=== PATIENT | female | born 2005 | race Caucasian/White ===

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

== ENCOUNTER 2023-01-29 18:41 | Emergency (ER) | payer OTHER, SELFPAY ==
[2023-01-29 18:50] VITALS: BP 129/74; PULSE 62; RESP 20; TEMP 36.9; O2SAT 98; BMI 27.7
[2023-01-29 19:01] LABS: UTC Strep Screen (Rapid) Negative (Negative)
--- NOTE | 2023-01-29 19:40 | EXP.UTC ---
Discharge Plan Disposition Patient Disposition: Home, Self-Care Condition: Good Prescriptions Prescriptions: New azithromycin [Zithromax Z-Benjamin] 250 mg tablet See Rx Instructions .ROUTE .COMPLEX 5 Days Qty: 6 0RF Rx Instructions: For 250 mg dose pack: take 500 mg today (day 1), then 250 mg for 4 days (days 2-5) No Action escitalopram oxalate 10 mg tablet 10 mg PO DAILY Aimovig Autoinjector 140 mg/mL auto-injector 140 mg SQ QMONTH Referrals Follow up/Referrals: Dilcia Drake APRN [Primary Care Provider] - See instructions Activity Restrictions/Add. Instructions Additional Instructions/Restrictions: *Monitor Temp, Over the counter Motrin or Tylenol as directed/as needed Tylenol every 4 hours and Motrin every 6 hours (as long as your family doctor has told you that you can take it) for fever or pain. and straight to ER if unable to lower temp less than 101.0 after medication given *Warm salt water gargles may help to soothe the throat *Throat Lozenges? *Warm fluids like tea with honey may help to soothe the throat? *Sleep elevated *Humidifier/Vaporizer Your throat swab was sent for culture. Those results are typically sent to your primary care. Be sure to follow up in 2-3 days with your family doctor/primary care physician if no improvement so they can review those result and treat if necessary. If you don?t have a primary care doctor, I recommend you get one but in the mean time, you will have to return to a walk in clinic Follow up IMMEDIATELY for new or worsening symptoms or no Noticeable improvement over the next 48-72 hours. 911 for difficulty breathing or swallowing Clinical Impressions Clinical Impression: URI (upper respiratory infection) Qualifiers: URI type: unspecified URI Qualified Code(s): J06.9 - Acute upper respiratory infection, unspecified Instructions Patient Instructions: Sore Throat, DI for Sinusitis Discharge ED Provider: Cherelle Corey [place] HPI General Stated complaint: sore throat Mode of Arrival: Ambulatory Source of Information: Patient Limitations: No Limitations Time Seen by Provider: 01/29/23 19:00 Description of Symptoms (Recalled from Triage Doc. by RN): PATIENT C/O SORE THROAT TODAY AND HEADACHE SINCE YESTERDAY HEENT Symptoms (Recalled from RN notes): Yes Resp Symptoms (Recalled from RN notes): No Skin Symptoms (Recalled from RN notes): No MS Symptoms (Recalled from RN notes): No Functional Status (Recalled from RN notes): WNL History of Present Illness Provider Complaint: Patient states that she had a headache yesterday, feeling achy and fatigued and today she had sore throat and tired States that she was worried she may have strep throat States that also she was feeling tired and achy like she felt when she had [place] before Related Data Home Medications Medication Instructions Recorded Confirmed erenumab-aooe 140 mg/mL 140 mg SQ QMONTH MIGRAINE 01/29/23 01/29/23 subcutaneous auto-injector (Aimovig Autoinjector) escitalopram oxalate 10 mg tablet 10 mg PO DAILY Anxiety 01/29/23 01/29/23 Previous Rx's Medication Instructions Recorded azithromycin 250 mg tablet See Rx Instructions PO .COMPLEX 5 01/29/23 (Zithromax Z-Benjamin) days #6 tabs Allergies Allergy/AdvReac Type Severity Reaction Status Date / Time No Known Allergies Allergy Verified 01/15/23 12:02 Worker's Comp Is this a Worker's Comp case?: No PFSH [facility] Disclaimer: The information contained in this section may have been updated after the patient was seen, as this information can be updated by other users. Medical History (Updated 01/29/23 @ 20:09 by Cherelle Corey APRN) Abdominal pain, lower Abnormal uterine bleeding Acute anemia Acute bronchitis Acute viral syndrome Anxiety Bronchitis Bronchitis Cervical muscle strain Collar bone pain Constipation Constipation COVID-19 Dental abscess Depression Dizziness Encounter fo
[2023-01-29 20:01] LABS: Monoscreen (Rapid) Negative (Negative)
[2023-01-29 20:03] VITALS: BP 129/74; PULSE 62; RESP 20; TEMP 36.9; O2SAT 98
== END 2023-01-29 20:16 | disposition home or self-care (01) ==
PROVIDERS: Emergency Provider Nurse Practitioner; PCP Nurse Practitioner Family
DX: J06.9 Acute upper respiratory infection, unspecified (principal); R53.81 Other malaise; F41.9 Anxiety disorder, unspecified; F32.A Depression, unspecified
CPT/HCPCS: 86318; 87880; 99212; 99214; G0463

== ENCOUNTER → 2023-04-01 10:53 | Outpatient (CLI) | payer OTHER, SELFPAY ==
--- NOTE | 2023-04-01 10:53 | FL_ITS ---
FINAL REPORT CLINICAL HISTORY: diff swallowing FINDINGS: MODIFIED BARIUM SWALLOW HISTORY: Dysphagia. FINDINGS: Fluoroscopy was provided for the speech pathologist to evaluate the swallowing mechanism. The patient was given several different consistencies of barium while the swallow was visualized fluoroscopically. The report of the speech pathologist should be consulted prior to making dietary decisions. IMPRESSION: Modified barium swallow under fluoroscopic guidance. Please see speech pathologist's report for further details and dietary recommendations. Fluoroscopy time was 1 minutes, 43 seconds Radiation exposure in Reference air Kerma: 7 mGy A total of 16 cine runs were saved. Reviewed, Interpreted and Dictated by Juana Espitia MD Transcribed by Grace Shaffer PA-C Authenticated and [facility]
--- NOTE | 2023-04-01 11:31 | HMH.SLMBS2 ---
Speech & Language Evaluation Speech/Language Mod Barium Swallow Start: 04/01/23 11:24 Freq: once Status: Complete Protocol: Document 04/01/23 11:24 GEORGE (Rec: 04/01/23 11:30 GEORGE [id number]) General Information General Current Food Consistancy Regular,Thin Liquids Dentition Good Dentition Oxygen Status Room Air Patient Orientation Person,Place,Time,Situation Ability to Follow Directions Excellent Communication Ability No Impairment MBS Recommendations Diet Dietary Recommendations Regular,Thin Liquids Treatment/Strategies Strategy/Precaution Recommend Sitting Upright (90 deg), Double Swallow,No Straw,Small Bites and Sips,Alternate Liquids/Solids Mod Barium Swallow Impressions Summary and Impressions Oral Phase Impression Minimal Impairment Oral Phase Summary Minimal impairment of the oral transit and oral preparatory phases of the swallow. Overall , mastication and manipulation of bolus are WFL, however, pt was observed to have difficulty with larger bolus size and would withhold and initiate multiple swallows to clear, as well as taking multiple swallow attempts to clear barium tablet from oral cavity 2' minimal tongue movement and ROM. Pharyngeal Phase Impression Mild Impairment Pharyngeal Phase Summary Mild impairment of the pharyngeal phase of the swallow. Upon subsequent sips, larger sips, and straw sips of thin liquid bolus residual was observed in the vallecular space. Pt required 2nd swallow to clear. BOT residual was also observed across regular and mechanical soft solids. No overt s/sxs of aspiration was observed, however 2' difficulty with barium tablet pt was observed to gag and took 4 attempts to clear from oral cavity. Speech/Language MBS Assessment/Goals/Plan Assessment Date of Evaluation: 04/01/23 Evaluation Type Initial Certification Assessment/Problems Choking/dys
== END ==
PROVIDERS: PCP Nurse Practitioner Family; Visit Provider Nurse Practitioner Family
DX: R13.10 Dysphagia, unspecified (principal); R09.89 Other specified symptoms and signs involving the circulatory and respiratory systems
CPT/HCPCS: 70371; 92611

== ENCOUNTER 2023-10-06 17:19 | Emergency (ER) | payer OTHER, SELFPAY ==
[2023-10-06 18:00] VITALS: BP 116/76; PULSE 90; RESP 18; TEMP 37.1; O2SAT 97; BMI 26.6
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
[2023-10-06 18:41] VITALS: BP 116/76; PULSE 90; RESP 18; TEMP 37.1; O2SAT 97
== END 2023-10-06 18:41 | disposition home or self-care (01) ==
PROVIDERS: Emergency Provider Nurse Practitioner Family; PCP Nurse Practitioner Family
DX: H66.92 Otitis media, unspecified, left ear (principal); H60.92 Unspecified otitis externa, left ear
CPT/HCPCS: 99212; 99214; G0463

== ENCOUNTER 2023-11-09 15:53 | Emergency (ER) | payer OTHER, SELFPAY ==
[2023-11-09 15:55] VITALS: BP 112/77; PULSE 77; RESP 17; TEMP 36.8; O2SAT 97; BMI 29.2
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
[2023-11-09 16:14] VITALS: BP 112/77; PULSE 77; RESP 17; TEMP 36.8; O2SAT 97
== END 2023-11-09 16:15 | disposition home or self-care (01) ==
PROVIDERS: Emergency Provider Nurse Practitioner Family; PCP Nurse Practitioner Family
DX: H69.93 Unspecified Eustachian tube disorder, bilateral (principal); R42 Dizziness and giddiness
CPT/HCPCS: 99212; 99214; G0463

== ENCOUNTER 2023-11-27 10:22 | Emergency (ER) | payer OTHER, SELFPAY ==
[2023-11-27 10:33] VITALS: BP 118/79; PULSE 94; RESP 16; TEMP 36.7; O2SAT 98; BMI 29.5
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
[2023-11-27 10:58] VITALS: BP 118/79; PULSE 94; RESP 16; TEMP 36.7; O2SAT 98
== END 2023-11-27 10:58 | disposition home or self-care (01) ==
PROVIDERS: Emergency Provider Nurse Practitioner; PCP Nurse Practitioner Family
DX: H66.92 Otitis media, unspecified, left ear (principal); H92.02 Otalgia, left ear
CPT/HCPCS: 99212; 99214; G0463

== ENCOUNTER 2023-12-07 14:35 | Outpatient (CLI) | payer OTHER, SELFPAY ==
[2023-12-07 14:26] LABS: Microscopic, Urine URINE MICROSCOPIC (MICROSCOPIC)
[2023-12-07 15:09] LABS: Appearance,Urine CLEAR (Clear); Blood, Urine 1+ (Negative); Color,Urine ORANGE (Yellow); Glucose,Urine (UA) Negative (Negative); Ketones,Urine Negative (Negative); Leukocyte Esterase,Urine Negative (Negative); Nitrate,Urine POSITIVE (Negative); PH,Urine 5.5 (5.0-8.5); Protein,Urine TRACE (Negative); Specific Gravity, Urine >= 1.030 (1.005-1.030)
[2023-12-07 15:35] LABS: Basophils # 0.1 K/mm3 (0-0.2); Basophils % 0.7 % (0.1-2.0); Eosinophils # 0.1 K/mm3 (0.0-0.4); Eosinophils % 0.9 % (0.1-12.0); Hematocrit 36.1 % (37.0-47.0); Hemoglobin 13.8 g/dL (12.2-16.2); Lymphocytes # 3.6 K/mm3 (0.7-4.5); Lymphocytes % 35.7 % (10-50); Mean Corpuscular HGB Conc 38.2 g/dL (31.8-35.4); Mean Corpuscular Hemoglobin 34.6 pg (27.0-31.2); Mean Corpuscular Volume 90.6 fl (81-99); Mean Platelet Volume 7.8 fl (7.4-10.4); Monocytes # 0.5 K/mm3 (0.1-1.0); Monocytes % 4.6 % (1.7-9.3); Neutrophils # 5.8 K/mm3 (1.8-7.8); Neutrophils % 58.1 % (37.0-80.0); Platelet Count 298 K/mm3 (142-424); Red Blood Count 3.99 M/mm3 (4.20-5.40); Red Cell Distribution Width 13.7 % (11.5-17.5); White Blood Count 9.9 K/mm3 (4.5-13.0)
[2023-12-07 15:39] LABS: Bilirubin,Urine Negative (Negative)
[2023-12-07 15:41] LABS: Bacteria,Urine Trace /lpf; RBC,Urine Occasional #/hpf (0-3); WBC,Urine Occasional #/hpf (0-3)
[2023-12-07 15:51] LABS: Hemoglobin A1C 4.9 % (4.0-6.0)
[2023-12-07 15:59] LABS: Alanine Aminotransferase 21 U/L (12-78); Albumin Level 4.5 g/dl (3.5-5.0); Albumin/Globulin Ratio 1.6 (1.1-1.8); Alkaline Phosphatase 73 U/L (38-126); Anion Gap 13.5 mEq/L (5-15); Aspartate Amino Transferase 25 U/L (14-36); Bilirubin,Total 0.5 mg/dl (0.2-1.3); Blood Urea Nitrogen 13 mg/dl (7-17); Calcium 9.7 mg/dl (8.4-10.2); Carbon Dioxide 23 mmol/L (22.0-30.0); Chloride 108 mmol/L (98-107); Chol/HDL Ratio 4.6 (1-3.5); Cholesterol 224 mg/dl (140-200); Estimated Glomerular Filt Rate 127 ml/min (>60); GFR (African American) 154 ML/MIN (>60); Globulin 2.8 g/dL (1.3-3.2); Glucose 86 mg/dl (74-100); HDL Cholesterol 49 mg/dl (40-60); Phosphorous 3.6 mg/dl (2.5-4.5); Potassium 4.5 mmoL/L (3.5-5.1); Sodium 140 mmol/L (136-145); Total Protein,Serum 7.3 g/dl (6.3-8.2); Triglycerides 109 mg/dl (30-150); VLDL Cholesterol 22 mg/dL (0-40)
[2023-12-07 16:09] LABS: Direct LDL Cholesterol 142.46 mg/dL (100-129)
[2023-12-07 16:15] LABS: Free T4 (Free Thyroxine) 1.04 ng/dl (0.78-2.19)
[2023-12-07 16:16] LABS: 25-OH Vitamin D, Total 36.8 ng/mL (30-100)
[2023-12-07 16:30] LABS: Thyroid Stimulating Hormone 2.51 uIU/mL (0.465-4.68)
[2023-12-07 16:50] LABS: Vitamin B12 328 pg/mL (239-931)
[2023-12-07 17:15] LABS: Iron 72 ug/dL (37-170)
[2023-12-07 17:25] LABS: Total Iron Binding Capacity 318 ug/dL (265-497)
[2023-12-07 17:53] LABS: Ferritin 33.3 ng/ml (6.24-137)
== END 2023-12-07 23:59 | disposition home or self-care (01) ==
LOC: LAB.DROPOF 14:35
PROVIDERS: PCP Nurse Practitioner Family; Visit Provider Nurse Practitioner Family
DX: R53.83 Other fatigue (principal); Z13.220 Encounter for screening for lipoid disorders; Z13.1 Encounter for screening for diabetes mellitus
CPT/HCPCS: 80050; 80053; 80061; 81001; 82306; 82607; 82728; 83036; 83540; 83550; 83735; 84100; 84439; 84443; 85025; 87086; 87088; 87186

== ENCOUNTER 2023-12-12 10:20 | Emergency (ER) | payer OTHER, SELFPAY ==
[2023-12-12 10:50] VITALS: BP 117/78; PULSE 78; RESP 18; TEMP 36.8; O2SAT 98; BMI 29.0
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
[2023-12-12 11:32] LABS: Apearance,Urine Clear (Clear); Bilirubin,Urine 1+ (Negative); Blood, Urine Trace (Negative); Color,Urine Amber (Yellow); Glucose,Urine (UA) 100 (Negative); Ketones,Urine Negative (Negative); Protein,Urine Trace (Negative); Specific Gravity, Urine >= 1.030 (1.005-1.030); UTC Leukocyte Esterase,Urine Negative (Negative); UTC Nitrate,Urine Positive (Negative); Urobilinogen,Urine 1 EU/dl (0.2)
[2023-12-12 11:39] VITALS: BP 117/78; PULSE 78; RESP 18; TEMP 36.8; O2SAT 98
== END 2023-12-12 11:42 | disposition home or self-care (01) ==
PROVIDERS: Emergency Provider Nurse Practitioner; PCP Nurse Practitioner Family
DX: N39.0 Urinary tract infection, site not specified (principal); R10.2 Pelvic and perineal pain; R30.0 Dysuria
CPT/HCPCS: 81003; 87086; 99212; 99214; G0463

== ENCOUNTER 2023-12-22 11:08 | Outpatient (POV) | payer OTHER, SELFPAY | END 2023-12-22 23:59 | disposition home or self-care (01) | LOC: SC 11:09 | PROVIDERS: PCP Nurse Practitioner Family; Visit Provider Dermatology | DX: Z00.00 Encounter for general adult medical examination without abnormal findings (principal) ==

== ENCOUNTER 2023-12-23 13:00 | Outpatient (RCR) | payer OTHER, SELFPAY | END 2023-12-23 13:05 | disposition home or self-care (01) | LOC: PT 13:00 | PROVIDERS: Visit Provider Nurse Practitioner | DX: R68.84 Jaw pain (principal); S03.00XA Dislocation of jaw, unspecified side, initial encounter | CPT/HCPCS: 20561; 97014; 97110; 97163; G0283 ==

== ENCOUNTER 2024-02-12 14:56 | Outpatient (CLI) | payer OTHER, SELFPAY ==
--- NOTE | 2024-02-12 14:56 | US_ITS ---
PROCEDURE: US TRANSVAGINAL CLINICAL INDICATION: pelvic pain-possible ovarian cyst COMPARISON: US US PELVIC from 09/15/2022 US US TRANSVAGINAL from 10/22/2022 FINDINGS: Transvaginal sonographic images of the pelvis were obtained. UTERUS: 8.3cm x 4.6 cmx 4.3cm with a combined endometrial thickness of 14.8 mm. Initially the endometrium appeared thickened but at the end of the exam the endometrium appear normal and 5.9 mm. LEFT OVARY: 2.2cmx1.7 cmx1.1cm with a volume of 2.3ml. RIGHT OVARY: 3.5 cmx 3.8 cmx2.6 cm with a volume of 18.1ml. There is a simple follicle measuring 3.3 cm x 2.4 cm x 3.6 cm Both ovaries are seen and appear normal. Doppler flow to both ovaries are seen. There is no fluid in the cul-de-sac. IMPRESSION: 1. Anteverted uterus normal in shape and size. The endometrium initially measured 14.8 mm and at the end of the exam the endometrium measured 5.9 mm. 2. The left ovary is seen and appears normal. 3. Within the right ovary is a 3.6 cm simple follicle. 4. No fluid in the cul-de-sac. 5. Suggest repeat scan in 6-8 weeks. Dictated by: Farurkh Camara MD 02/13/2024 08:05 Farrukh Camara MD in [place] 02/13/2024 08:05
== END 2024-02-12 23:59 | disposition home or self-care (01) ==
LOC: RAD 14:56
PROVIDERS: PCP Nurse Practitioner Family; Visit Provider Obstetrics & Gynecology
DX: R10.2 Pelvic and perineal pain (principal); N80.9 Endometriosis, unspecified; N83.202 Unspecified ovarian cyst, left side
CPT/HCPCS: 76830

== ENCOUNTER 2024-05-05 11:33 | Emergency (ER) | payer OTHER, SELFPAY ==
[2024-05-05 12:50] VITALS: BP 131/86; PULSE 80; RESP 19; TEMP 37.1; O2SAT 98; BMI 31.9
--- NOTE | 2024-05-05 13:14 | EXP.UTC ---
Discharge Plan Disposition Patient Disposition: Home, Self-Care Condition: Good Prescriptions Prescriptions: New oseltamivir [Tamiflu] 75 mg capsule 75 mg PO Q12H 5 Days Qty: 10 0RF No Action norgestimate-ethinyl estradiol [Sprintec (28)] 0.25-35 mg-mcg tablet 1 tab PO DAILY Qty: 84 4RF escitalopram oxalate 10 mg tablet 10 mg PO DAILY Rx Instructions: TAKE 1 TABLET BY MOUTH ONCE DAILY FOR ANXIETY Referrals Follow up/Referrals: Dilcia Drake APRN [Primary Care Provider] - See instructions Activity Restrictions/Add. Instructions Additional Instructions/Restrictions: Start Tamiflu today if you are going to take it. Discussed risk and possible benefits. Lots of rest Increase Fluids water, Gatorade, powerade, pedialyte,if /toddler/child Alternate Tylenol and / or ibuprofen as discussed for fever, aches, chills Follow up IMMEDIATELY with your family doctor for new or worsening Symptoms OR no noticeable improvement over the next 48-72 hours, 911 for difficulty or breathing You or your child area contagious until no fever, aches, chills for 24 hours with medication for symptoms Help Prevent the spread of influenza: ?Wash your hands often. Use soap and water. Wash your hands after you use the bathroom, change a child's diapers, or sneeze. Wash your hands before you prepare or eat food. Use gel hand cleanser that has 60% alcohol, when soap and water are not available. Do not touch your eyes, nose, or mouth unless you have washed your hands first. Cover your mouth when you sneeze or cough. Cough into a tissue or the bend of your arm. If you use a tissue, throw it away immediately and wash your hands. Clean shared items with a germ-killing marble cleaner. Clean table surfaces, doorknobs, and light switches. Do not share towels, silverware, and dishes with people who are sick. Wash bed sheets, towels, silverware, and dishes with soap and water. Wear a mask over your mouth and nose if you are sick. The face mask may help protect others from becoming infected with the flu. Wear the mask when in common areas of your home or if you seek care with a healthcare provider. Stay away from others if you are sick. Stay at home until 24 hours after your fever and symptoms are gone. Clinical Impressions Clinical Impression: Influenza Instructions Patient Instructions: DI for Influenza -- Adult, Influenza Print Language Print Language: Citizen Of [place] Discharge ED Provider: Cherelle Corey [facility] [place] HPI General Stated complaint: congestion body aches fever Mode of Arrival: Ambulatory Source of Information: Patient Limitations: No Limitations Time Seen by Provider: 05/05/24 13:00 Description of Symptoms (Recalled from Triage Doc. by RN): PATIENT C/O EAR PAIN, CHILLS, FEVER, CONGESTION AND BODY ACHES X 3 DAYS HEENT Symptoms (Recalled from RN notes): Yes Resp Symptoms (Recalled from RN notes): No Skin Symptoms (Recalled from RN notes): No MS Symptoms (Recalled from RN notes): No Functional Status (Recalled from RN notes): WNL History of Present Illness Provider Complaint: Patient states that for the last few days she has been having body aches, chills, headache, ear pain and chills States that father tested positive this morning for the flu Related Data Home Medications ?Medication ?Instructions ?Recorded ?Confirmed escitalopram oxalate 10 mg tablet 10 mg PO DAILY 11/09/23 05/05/24 Previous Rx's ?Medication ?Instructions ?Recorded norgestimate 0.25 mg-ethinyl 1 tab PO DAILY #84 tabs 01/20/24 estradiol 35 mcg tablet (Sprintec (28)) oseltamivir 75 mg capsule (Tamiflu) 75 mg PO Q12H 5 days #10 caps 05/05/24 Allergies Allergy/AdvReac Type Severity Reaction Status Date / Time No Known Allergies Allergy Verified 01/20/24 14:31 Worker's Comp Is this a Worker's Comp case?: No [facility] Disclaimer: The information contained in this section may have been updated after the patient was seen, as this information can be updated by other users. Medical History (Updated 05/05/24 @ 13:20 by Cherelle Corey APRN) Endometriosis Pelvic pain Abnormal uterine bleeding Difficulty swallowing Choking episode Acute dysfunction of both eustachian tubes TMJ (dislocation of temporomandibular joint) Acute anemia Lumbosacral strain Cervical muscle strain Bronchitis Pharyngitis Depression Anxiety Migraine Epistaxis Left otitis media Gastroenteritis Surgical History H/O dilation and curettage History of tonsillectomy Family History Sister Postural orthostatic tachycardia syndrome [POTS] Other Cervical cancer Colon cancer Family history of cancer Lung cancer Social History Smoking Status: Never smoker alcohol intake: never substance use type: denies use current occupational status: employed Travel in the last 8 weeks: None household members: family housing: house lives independently: No education level: high school service: No penitentiary: No caffeine: Yes special maryam needs: No do you feel safe at home: Yes victim of physical abuse: No victim of emotional abuse: No victim of sexual abuse: No would you like helpful sources: No Have you lived/traveled outside [place] in past 30 days?: No Contact w/someone who lives/traveled outside US past 30 days?: No Exposure to someone with infectious disease in past 14 days?: No Do you have a fever (greater than 100.4 F or 38 C)?: No Have you tested positive for COVID-19: No Exposed to someone with COVID-19 in past 14 days?: No Do you have a sore throat?: Yes Do you have a cough?: Yes Do you have any weakness?: Yes Do you have any diarrhea?: No Are you experiencing any unusual bleeding?: No Do you have any muscle aches/pain?: No Do you have any abdominal pain?: No Are you experiencing loss of taste or smell?: No ROS Obtained: Yes All systems reviewed & no additional complaints except as documented and Yes Systems reviewed as appropriate & no additional complaints except as documented Constitutional Constitutional: Reports system reviewed and no additional complaints, except as documented, Reports as per HPI, Reports body ache, Reports chills, Reports fever(s) and Reports headache(s) ENT Ears, Nose, Mouth, and Throat: Reports system reviewed and no additional complaints, except as documented, Reports as per HPI, Reports otalgia and Reports headache(s) Cardiovascular Cardiovascular: Reports system reviewed and no additional complaints, except as documented and Reports as per HPI Respiratory Respiratory: Reports system reviewed and no additional complaints, except as documented and Reports as per HPI Gastrointestinal Gastrointestingal: Reports system reviewed and no additional complaints, except as documented and as per HPI Neurologic Neurologic: Reports headache(s) Physical Exam General General appearance: alert and in no apparent distress ENT ENT exam: Present mucous membranes moist and TM's normal bilaterally Expanded ENT Exam Nose exam: Absent sinus tenderness Throat exam: Present normal inspection Respiratory Respiratory exam: Present normal lung sounds bilaterally; Absent respiratory distress or wheezes Cardiovascular Cardiovascular exam: Present regular rate, normal rhythm and normal heart sounds Abdominal Exam Abdominal exam: Present soft and normal bowel sounds; Absent distention or tenderness Neurological Exam Neurological exam: Present alert, oriented X3 and normal gait Medical Decision Making Medical Records Screening: Per USPSTF and CDC recommendations, given the prevalence of disease in our region, it is our hospital?s policy to screen for HIV and viral Hepatitis for all patients aged 18 and over and those with ongoing risk factors. Eliud Inquiry Pt receiving controlled substance: No Eliud was queried for this patient: No Vital Signs: 05/05/24 12:50 Temperature 98.8 F Temperature Source Oral Pulse Rate [Left Brachial] 80 Respiratory Rate 19 Blood Pressure [Left Arm] 131/86 Blood Pressure Mean [Left Arm] 101 Blood Pressure Source [Left Arm] Automatic Cuff Blood Pressure Position [Left Arm] Sitting 02 Sat by Pulse Oximetry 98 Oxygen Delivery Method Room Air Lab Data Lab results reviewed: Yes I reviewed the patient's lab results.
[2024-05-05 13:15] LABS: UTC Influenza A Antigen Positive (Negative); UTC Influenza B Antigen Negative (Negative)
[2024-05-05 13:20] VITALS: BP 131/86; PULSE 80; RESP 19; TEMP 37.1; O2SAT 98
== END 2024-05-05 13:23 | disposition home or self-care (01) ==
PROVIDERS: Emergency Provider Nurse Practitioner; PCP Nurse Practitioner Family
DX: J11.1 Influenza due to unidentified influenza virus with other respiratory manifestations (principal); R50.9 Fever, unspecified; R09.81 Nasal congestion; M79.10 Myalgia, unspecified site; H92.03 Otalgia, bilateral
CPT/HCPCS: 87804; 99212; G0381

== ENCOUNTER 2024-07-09 08:12 | Outpatient (CLI) | payer OTHER, SELFPAY ==
[2024-07-09 08:19] LABS: Anti-Centromere B Antibodies ND; Anti-DNA (DS) Ab Qn ND; Anti-Jo-1 ND; Antichromatin Antibodies ND; Antiscleroderma-70 Antibodies ND; RNP Antibodies ND; Sjogren's Anti-SS-A ND; Sjogren's Anti-SS-B ND
[2024-07-09 08:39] LABS: Basophils # 0.1 K/mm3 (0-0.2); Basophils % 0.5 % (0.1-2.0); Eosinophils # 0.1 K/mm3 (0.0-0.4); Eosinophils % 1.3 % (0.1-12.0); Hematocrit 39.3 % (37.0-47.0); Hemoglobin 13.2 g/dL (12.2-16.2); Lymphocytes # 4.8 K/mm3 (0.7-4.5); Lymphocytes % 48.4 % (10-50); Mean Corpuscular HGB Conc 33.6 g/dL (31.8-35.4); Mean Corpuscular Hemoglobin 28.5 pg (27.0-31.2); Mean Corpuscular Volume 84.9 fl (81-99); Mean Platelet Volume 9.2 fl (7.4-10.4); Monocytes # 0.6 K/mm3 (0.1-1.0); Monocytes % 6.4 % (1.7-9.3); Neutrophils # 4.3 K/mm3 (1.8-7.8); Neutrophils % 43.1 % (37.0-80.0); Platelet Count 313 K/mm3 (142-424); Red Blood Count 4.63 M/mm3 (4.20-5.40); Red Cell Distribution Width 12.6 % (11.5-17.5); White Blood Count 9.9 K/mm3 (4.5-13.0)
[2024-07-09 09:42] LABS: Alanine Aminotransferase 18 U/L (12-78); Albumin Level 4.7 g/dl (3.5-5.0); Albumin/Globulin Ratio 2.2 (1.1-1.8); Alkaline Phosphatase 75 U/L (38-126); Aspartate Amino Transferase 23 U/L (14-36); Bilirubin,Total 0.3 mg/dl (0.2-1.3); Blood Urea Nitrogen 11 mg/dl (7-17); Calcium 9.4 mg/dl (8.4-10.2); Carbon Dioxide 24 mmol/L (22.0-30.0); Chloride 109 mmol/L (98-107); Estimated Glomerular Filt Rate 107 ml/min (>60); GFR (African American) 129 ML/MIN (>60); Globulin 2.1 g/dL (1.3-3.2); Glucose 101 mg/dl (74-100); Magnesium 1.8 mg/dl (1.6-2.3); Sodium 141 mmol/L (136-145); Total Protein,Serum 6.8 g/dl (6.3-8.2)
[2024-07-09 09:57] LABS: T4 (Thyroxine) 13.1 ug/dl (5.53-11.0)
[2024-07-09 09:59] LABS: 25-OH Vitamin D, Total 19.9 ng/mL (30-100)
[2024-07-09 10:10] LABS: Thyroid Stimulating Hormone 3.24 uIU/mL (0.465-4.68)
[2024-07-09 10:39] LABS: Hemoglobin A1C 4.9 % (4.0-6.0)
[2024-07-09 13:12] LABS: Ferritin 27.3 ng/ml (6.24-137)
[2024-07-11 17:10] LABS: Estradiol <5.0 pg/mL (.); FSH 2.1 mIU/mL (.); LH 1.7 mIU/mL (.); Progesterone 0.3 ng/mL (.); Triiodothyronine (T3) Free 3.8 pg/mL (2.0-4.4)
[2024-07-12 14:12] LABS: Antinuclear Antibodies (ANA) Negative (Negative)
== END 2024-07-09 23:59 | disposition home or self-care (01) ==
PROVIDERS: PCP Nurse Practitioner Family; Visit Provider Nurse Practitioner Family
DX: G47.00 Insomnia, unspecified (principal); F41.9 Anxiety disorder, unspecified; N93.9 Abnormal uterine and vaginal bleeding, unspecified; R23.2 Flushing; Z13.1 Encounter for screening for diabetes mellitus
CPT/HCPCS: 36415; 80053; 82306; 82533; 82670; 82728; 83001; 83002; 83036; 83735; 84144; 84436; 84439; 84443; 84481; 85025; 86038; 86225; 86235

== ENCOUNTER 2024-07-15 14:41 | Outpatient (CLI) | payer OTHER, SELFPAY ==
--- NOTE | 2024-07-15 14:41 | US_ITS ---
PROCEDURE: US TRANSVAGINAL CLINICAL INDICATION: prolonged uterine bleeding COMPARISON: CT CT ABDOMEN PELVIS WO CON from 01/02/2022 US US PELVIC from 09/15/2022 US US TRANSVAGINAL from 10/22/2022 US US TRANSVAGINAL from 02/12/2024 FINDINGS: Transvaginal and transabdominal sonographic images of the pelvis were obtained. UTERUS: 8.1cm x 4.9 cmx 3.9 cm anteverted with a combined endometrial thickness of 3.7mm. There is a small amount of fluid within the cervical canal. LEFT OVARY: 1.1cmx2.0cmx 1.9 cm with a volume of 2.1ml. There are multiple small peripheral follicles. RIGHT OVARY: Not visualized. The left ovary is seen and appears multi-cystic. Doppler flow to left ovary is seen. There is no fluid in the cul-de-sac. IMPRESSION: 1. Anteverted uterus normal in shape and size. The endometrium is thin measuring 3.7 mm. There is a small amount of fluid within the cervical canal. 2. In the left cornua of the uterus there appears to be a well-circumscribed mass that measures 0.9 cm x 1.0 cm. See images 11-12. Suggest repeat scan to better delineate this and determine if this is simply artifact. 3. The left ovary is seen and appears normal. There are multiple small follicles. 4. The right ovary is not visualized transvaginally or transabdominally. 5. No fluid in the cul-de-sac. Dictated by: Farrukh Camara MD 07/15/2024 18:37 Farrukh Camara MD in [place] 07/15/2024 18:37
== END 2024-07-15 23:59 | disposition home or self-care (01) ==
LOC: RAD 14:41
PROVIDERS: PCP Nurse Practitioner Family; Visit Provider Nurse Practitioner Family
DX: N93.9 Abnormal uterine and vaginal bleeding, unspecified (principal)
CPT/HCPCS: 76830

== ENCOUNTER 2024-07-21 08:39 | Outpatient (CLI) | payer OTHER, SELFPAY ==
--- NOTE | 2024-07-21 08:40 | US_ITS ---
PROCEDURE: US TRANSVAGINAL CLINICAL INDICATION: left cornua of the uterus COMPARISON: CT CT ABDOMEN PELVIS WO CON from 01/02/2022 US US TRANSVAGINAL from 10/22/2022 US US TRANSVAGINAL from 02/12/2024 US US TRANSVAGINAL from 07/15/2024 FINDINGS: Transvaginal and transabdominal sonographic images of the pelvis were obtained. UTERUS: 7.0cm x 4.6 cmx 3.8 cm anteverted with a combined endometrial thickness of 7.2mm. The area of previously seen on the last ultrasound seems to be just benign vascularity. LEFT OVARY: 2.0cmx1.5 cmx1.6cm with a volume of 2.6ml. There are multiple small peripheral follicles. RIGHT OVARY: 1.8 cmx 1.3cmx1.4cm with a volume of 1.7ml. Right ovary is seen transabdominally and appears normal. Both ovaries are seen and appear normal. Doppler flow to both ovaries are seen. There is no fluid in the cul-de-sac. IMPRESSION: 1. Anteverted uterus normal in shape and size. The endometrium appears normal. The previously described area in the left cornua appears to be just benign vascularity. 2. Both ovaries are seen and appear normal. 3. No fluid in the cul-de-sac. Dictated by: Farrukh Camara MD 07/21/2024 18:35 Farrukh Camara MD in [place] 07/21/2024 18:35
--- NOTE | 2024-07-21 08:40 | CT_ITS ---
FINAL REPORT CLINICAL HISTORY: Kidney adrenal gland-High Cortisol COMPARISON: 01/02/2022 FINDINGS: The lung bases are clear. The liver is normal in size and attenuation. The gallbladder is normal. The spleen is unremarkable. The adrenals are normal. The pancreas is unremarkable. The kidneys enhance appropriately. Precontrast images demonstrate no nephrolithiasis or obstruction. The uterus is present and lies eccentric to the right. There is a moderate amount of stool throughout the colon. The appendix is unremarkable. IMPRESSION: No evidence of adrenal mass. Reviewed, Interpreted and Dictated by Reji Beckwith MD Transcribed by Justine Jordan Authenticated and [facility]
[2024-07-21] MEDS: IOPAMIDOL-370 (76%);100ML BOTTLE 75 ML IV (09:56)
[2024-07-21] MEDS: SODIUM CHLORIDE 0.9% 10ML SYR (RAD ONLY) 10 ML IV (09:56)
== END 2024-07-21 23:59 | disposition home or self-care (01) ==
LOC: RAD 08:40
PROVIDERS: PCP Nurse Practitioner Family; Visit Provider Nurse Practitioner Obstetrics & Gynecology
DX: N85.8 Other specified noninflammatory disorders of uterus (principal); R23.2 Flushing; R93.89 Abnormal findings on diagnostic imaging of other specified body structures; R79.89 Other specified abnormal findings of blood chemistry
CPT/HCPCS: 74178; 76830; Q9967

== ENCOUNTER 2024-07-22 09:56 | Outpatient (CLI) | payer OTHER, SELFPAY ==
--- NOTE | 2024-07-22 09:57 | MR_ITS ---
FINAL REPORT CLINICAL HISTORY: Pituitary Protocol -Hypercortisol Levels ruling out a pituitary tumor FINDINGS: Multiplanar MR imaging of the brain was performed without and with contrast. There is no evidence of intracranial hemorrhage or mass. No abnormal extra-axial fluid collection is seen. The ventricular size is within normal limits. There is no evidence of shift of the midline structures. The posterior fossa and brainstem have an unremarkable appearance. No area of abnormal restricted diffusion is identified. No abnormal contrast enhancement is seen. Normal major vessel vascular flow voids are noted. The pituitary gland is within normal limits with respect to size. There is no pituitary mass or abnormal contrast enhancement. The pituitary stalk is midline. There is no suprasellar mass. The optic chiasm is normal. IMPRESSION: No acute intracranial abnormality identified. Reviewed, Interpreted and Dictated by Reji Beckwith MD Transcribed by Lou Hoover Authenticated and [facility]
[2024-07-22] MEDS: GADOTERIDOL INJ 20ML SYRINGE 18 ML IV (11:01)
[2024-07-22] MEDS: SODIUM CHLORIDE 0.9% 10ML SYR (RAD ONLY) 10 ML IV (11:01)
[2024-07-22] MEDS: SODIUM CHLORIDE 0.9% 50ML BAG 22 ML IV (11:01)
== END 2024-07-22 23:59 | disposition home or self-care (01) ==
LOC: RAD 09:57
PROVIDERS: PCP Nurse Practitioner Family; Visit Provider Nurse Practitioner Obstetrics & Gynecology
DX: R79.89 Other specified abnormal findings of blood chemistry (principal); R23.2 Flushing
CPT/HCPCS: 70553; A9576

== ENCOUNTER 2024-08-04 23:08 | Emergency (ER) | payer OTHER, SELFPAY ==
[2024-08-04 23:16] VITALS: BP 133/86; BP 146/91; PULSE 80; PULSE 84; RESP 17; TEMP 36.8; O2SAT 99; BMI 22.7
[2024-08-04 23:30] VITALS: BP 129/79; PULSE 80; O2SAT 98
[2024-08-04 23:45] VITALS: BP 134/85; PULSE 83; O2SAT 98
[2024-08-04 23:57] LABS: Basophils % 0.4 % (0.1-2.0); Eosinophils # 0.1 K/mm3 (0.0-0.4); Eosinophils % 1.2 % (0.1-12.0); Hematocrit 43.6 % (37.0-47.0); Hemoglobin 14.3 g/dL (12.2-16.2); Lymphocytes # 3.1 K/mm3 (0.7-4.5); Lymphocytes % 30.6 % (10-50); Mean Corpuscular HGB Conc 32.8 g/dL (31.8-35.4); Mean Corpuscular Hemoglobin 28.5 pg (27.0-31.2); Mean Platelet Volume 9.4 fl (7.4-10.4); Monocytes # 0.7 K/mm3 (0.1-1.0); Monocytes % 7.3 % (1.7-9.3); Neutrophils # 6.1 K/mm3 (1.8-7.8); Neutrophils % 60.1 % (37.0-80.0); Platelet Count 333 K/mm3 (142-424); Red Blood Count 5.01 M/mm3 (4.20-5.40); Red Cell Distribution Width 12.8 % (11.5-17.5); White Blood Count 10.2 K/mm3 (4.5-13.0)
--- NOTE | 2024-08-05 00:11 | ECG_ITS ---
APPROVED REPORT Exam: Resting ECG HR:80 bpm ECG Measurements Heart Rate 80 AXES MN 125 P 49 QRSd 97 QRS 61 QT 358 T 37 QTc 394 Conclusion SINUS RHYTHM NORMAL ECG Electronically signed by : KAREN LOPEZ, 08/05/2024 04:45:09
[2024-08-05 00:13] LABS: HCG Qualitative, Serum Negative (Negative)
[2024-08-05 00:32] LABS: Albumin Level 5.1 g/dl (3.5-5.0); Chloride 106 mmol/L (98-107)
[2024-08-05 00:33] LABS: Potassium 4.3 mmoL/L (3.5-5.1); Sodium 142 mmol/L (136-145)
[2024-08-05 00:35] LABS: Alanine Aminotransferase 23 U/L (12-78); Albumin/Globulin Ratio 1.9 (1.1-1.8); Anion Gap 18.3 mEq/L (5-15); Aspartate Amino Transferase 41 U/L (14-36); Blood Urea Nitrogen 10 mg/dl (7-17); Calcium 10.3 mg/dl (8.4-10.2); Carbon Dioxide 22 mmol/L (22.0-30.0); Creatinine Clearance Estimated 133 mL/min (50-200); Estimated Glomerular Filt Rate 107 ml/min (>60); GFR (African American) 129 ML/MIN (>60); Globulin 2.7 g/dL (1.3-3.2); Glucose 106 mg/dl (74-100); Total Protein,Serum 7.8 g/dl (6.3-8.2)
[2024-08-05 00:36] LABS: Alkaline Phosphatase 69 U/L (38-126); Bilirubin,Total 0.7 mg/dl (0.2-1.3)
[2024-08-05] MEDS: droPERidol 5MG/2ML VIAL 2.5 MG IV (00:36)
[2024-08-05] MEDS: LACTATED RINGERS 1000ML 1,000 ML 999 ML IV (00:37)
[2024-08-05 00:40] VITALS: BP 135/90; PULSE 82; O2SAT 99
[2024-08-05 00:45] VITALS: BP 140/90; PULSE 96; O2SAT 97
[2024-08-05 01:00] VITALS: BP 135/92; PULSE 74; O2SAT 96
[2024-08-05 01:15] VITALS: BP 144/95; PULSE 75; O2SAT 99
--- NOTE | 2024-08-05 01:24 | HMH.EDGENADL ---
Discharge Plan Disposition Patient Disposition: Home, Self-Care Condition: Good Prescriptions Prescriptions: No Action Emgality Pen 120 mg/mL pen injector SQ buspirone 5 mg tablet 5 mg PO BID 30 Days Qty: 60 0RF escitalopram oxalate 10 mg tablet See Rx Instructions .ROUTE .COMPLEX Qty: 90 3RF Dose Instruction: TAKE 1 TABLET BY MOUTH ONCE DAILY FOR ANXIETY Rx Instructions: TAKE 1 TABLET BY MOUTH ONCE DAILY FOR ANXIETY Referrals Follow up/Referrals: Gogo Gonzalez APRN [Primary Care Provider] - See instructions Activity Restrictions/Add. Instructions Additional Instructions/Restrictions: You were evaluated in the ER and are appropriate for discharge at this time. Continue taking home medications as prescribed. Make an appointment with your primary care doctor for reevaluation in 2 to 3 days. Continue following up closely with [facility] as well. Return to the ER with any new, worsening, or otherwise concerning symptoms. Clinical Impressions Clinical Impression: Headache, Nausea Print Language Print Language: Hong Konger Discharge ED Provider: Víctor Salazar Adult HPI General Chief complaint: Headache Stated complaint: migraine Time Seen by Provider: 08/04/24 23:33 Mode of Arrival: Ambulatory Source of Information: Patient Description of Symptoms (Recalled from ER Triage Doc. by RN): States that she's had a bad migraine since 1330. Reports pain 8/10. She states it is the worst migraine she's ever had. She reports she took ibuprofen 800mg at 1800, benadryl x2 at 1400, mucus relief at 1900, and rizatriptan at 1400 and 1600. History of Present Illness HPI narrative: 18-year-old female with history of migraines presents to the ER with bad migraine since 1:30 PM. She reports the pain 8 out of 10 and in the back of the head and left side of the head. She states this is classic of her typical migraines. She also had some flashers and floaters earlier. She states she took ibuprofen, Benadryl, Mucinex, and rizatriptan prior to arrival without any relief of symptoms. She states she has been having abnormal uterine bleeding but has close follow-up for this, she knows she has abnormal cortisol and estradiol. She is not concerned about this at this time. She reports photophobia and sensitivity to smells. She is not having any new numbness, tingling, weakness, she does states she has nausea but no vomiting or diarrhea. No other associated symptoms at this time. Related Data Home Medications ?Medication ?Instructions ?Recorded ?Confirmed galcanezumab-gnlm 120 mg/mL mg SQ 07/18/24 07/27/24 subcutaneous pen injector (Emgality Pen) Previous Rx's ?Medication ?Instructions ?Recorded buspirone 5 mg tablet 5 mg PO BID 30 days #60 tabs 07/08/24 escitalopram oxalate 10 mg tablet See Rx Instructions .Route 07/18/24 .COMPLEX #90 tabs Allergies Allergy/AdvReac Type Severity Reaction Status Date / Time No Known Allergies Allergy Verified 08/04/24 23:15 [facility] Disclaimer: The information contained in this section may have been updated after the patient was seen, as this information can be updated by other users. Medical History Endometriosis clinically Pelvic pain Abnormal uterine bleeding Difficulty swallowing Choking episode Acute dysfunction of both eustachian tubes TMJ (dislocation of temporomandibular joint) Acute anemia Lumbosacral strain Cervical muscle strain Bronchitis Pharyngitis Depression Anxiety Migraine Epistaxis Left otitis media Gastroenteritis Surgical History H/O dilation and curettage History of tonsillectomy Family History Sister Postural orthostatic tachycardia syndrome [POTS] Other Cervical cancer Colon cancer Family history of cancer Lung cancer Social History Smoking Status: Never smoker alcohol intake: never substance use type: denies use current occupational status: employed Travel in the last 8 weeks: None household members: family housing: house lives independently: No education level: high school service: No long term: No caffeine: Yes special maryam needs: No do you feel safe at home: Yes victim of physical abuse: No victim of emotional abuse: No victim of sexual abuse: No would you like helpful sources: No Have you lived/traveled outside US in past 30 days?: No Contact w/someone who lives/traveled outside US past 30 days?: No Exposure to someone with infectious disease in past 14 days?: No Do you have a fever (greater than 100.4 F or 38 C)?: No Have you tested positive for COVID-19: No Exposed to someone with COVID-19 in past 14 days?: No Do you have a sore throat?: No Do you have a cough?: No Do you have any weakness?: No Do you have any diarrhea?: No Are you experiencing any unusual bleeding?: No Do you have any muscle aches/pain?: No Do you have any abdominal pain?: No Are you experiencing loss of taste or smell?: No Other Medical History Have you received the Flu Vaccine for this season: No Have you received the Pneumonia Vaccine: No ROS Obtained: Yes Systems reviewed as appropriate & no additional complaints except as documented Per HPI Physical Exam General General appearance: alert and in no apparent distress Head Head exam: atraumatic and normocephalic Eye Eye exam: Present PERRL and EOMI ENT ENT exam: Present mucous membranes moist Neck Neck exam: Present normal inspection and full ROM Chest Chest inspection: Present symmetric chest wall rise Respiratory Respiratory exam: Present normal lung sounds bilaterally; Absent respiratory distress, wheezes or stridor Cardiovascular Cardiovascular exam: Present regular rate and normal rhythm Abdominal Exam Abdominal exam: Present soft; Absent distention or tenderness Extremities Exam Extremities exam: Present full ROM Neurological Exam Neurological exam: Present alert, oriented X3, CN II-XII intact and normal gait; Absent motor sensory deficit Psychiatric Psychiatric exam: Present normal affect and normal mood Skin Skin exam: Present warm and dry Medical Decision Making Medical Records Medical records reviewed: Yes I reviewed the patient's medical records. Screening: Per USPSTF and CDC recommendations, given the prevalence of disease in our region, it is our hospital?s policy to screen for HIV and viral Hepatitis for all patients aged 18 and over and those with ongoing risk factors. MR Comment: Most recent visit with OB on 07/18/2024 demonstrates patient continues having abnormal uterine bleeding, she has elevated cortisol as well as elevated T4 and is having weight gain. Low estradiol with hot flashes. Planning repeat ultrasound for questionable uterine abnormality, considering adding Estrace tablets to patient's medication regimen. Stopping control. Arranging MRI for pituitary evaluation as well as CT abdomen pelvis for kidney and adrenal evaluation. MRI does not show acute intracranial abnormality. Imaging from July 21 and demonstrates pituitary appears normal according to radiology read. CT abdomen pelvis does not demonstrate adrenal mass. No obvious acute abnormality within the uterus on ultrasound. Eliud Inquiry Pt receiving controlled substance: No Vital Signs: 08/04/24 23:16 08/04/24 23:16 08/04/24 23:30 Temperature 98.3 F Temperature Source Oral Pulse Rate 80 80 Pulse Rate [Right Brachial] 84 Respiratory Rate 17 Blood Pressure 133/86 129/79 Blood Pressure [Right Arm] 146/91 H Blood Pressure Mean [Right Arm] 109 Blood Pressure Source Blood Pressure Source [Right Arm] Automatic Cuff Blood Pressure Position Blood Pressure Position [Right Arm] Sitting 02 Sat by Pulse Oximetry 99 99 98 Oxygen Delivery Method Room Air 08/04/24 23:45 08/05/24 00:40 08/05/24 00:45 Temperature Temperature Source Pulse Rate 83 82 96 H Pulse Rate [Right Brachial] Respiratory Rate Blood Pressure 134/85 135/90 140/90 Blood Pressure [Right Arm] Blood Pressure Mean [Right Arm] Blood Pressure Source Blood Pressure Source [Right Arm] Blood Pressure Position Blood Pressure Position [Right Arm] 02 Sat by Pulse Oximetry 98 99 97 Oxygen Delivery Method 08/05/24 01:00 08/05/24 01:15 08/05/24 01:30 Temperature Temperature Source Pulse Rate 74 75 101 H Pulse Rate [Right Brachial] Respiratory Rate Blood Pressure 135/92 H 144/95 H 142/89 H Blood Pressure [Right Arm] Blood Pressure Mean [Right Arm] Blood Pressure Source Blood Pressure Source [Right Arm] Blood Pressure Position Blood Pressure Position [Right Arm] 02 Sat by Pulse Oximetry 96 99 97 Oxygen Delivery Method 08/05/24 02:39 Temperature 98.9 F Temperature Source Oral Pulse Rate 90 Pulse Rate [Right Brachial] Respiratory Rate 16 Blood Pressure 133/81 Blood Pressure [Right Arm] Blood Pressure Mean [Right Arm] Blood Pressure Source Automatic Cuff Blood Pressure Source [Right Arm] Blood Pressure Position Supine Blood Pressure Position [Right Arm] 02 Sat by Pulse Oximetry Oxygen Delivery Method Room Air Lab Data Lab Results 08/04/24 23:43: Sodium 142, Potassium 4.3, Chloride 106, Carbon Dioxide 22, Anion Gap 18.3 H, BUN 10, Creatinine 0.70, Estimated Creat Clear 133, Estimated GFR 107, Est GFR ( Amer) 129, Glucose 106 H, Calcium 10.3 H, Magnesium 2.0, Total Bilirubin 0.7, AST 41 H, ALT 23, Alkaline Phosphatase 69, Total Protein 7.8, Albumin 5.1 H, Globulin 2.7, Albumin/Globulin Ratio 1.9 H, Serum HCG, Qual Negative 08/04/24 23:44: WBC 10.2, RBC 5.01, Hgb 14.3, Hct 43.6, MCV 87.0, MCH 28.5, MCHC 32.8, RDW 12.8, Plt Count 333, MPV 9.4, Neut % (Auto) 60.1, Lymph % (Auto) 30.6, [place] % (Auto) 7.3, Eos % (Auto) 1.2, Baso % (Auto) 0.4, Neut # (Auto) 6.1, Lymph # (Auto) 3.1, [place] # (Auto) 0.7, Eos # (Auto) 0.1, Baso # (Auto) 0.0 08/04/24 23:44 08/04/24 23:43 Orders (Tests/Meds): ED MEDICATIONS Discontinued Medications Generic Name Dose Route Start Last Admin Trade Name Freq PRN Reason Stop Dose Admin Droperidol 2.5 mg 08/04/24 23:44 08/05/24 00:36 Droperidol 5mg/2ml Vial IV 08/04/24 23:45 2.5 mg ONCE ONE Administration Lactated Ringer's 1,000 mls @ 999 mls/hr 08/04/24 23:44 08/05/24 00:37 Lactated Ringer's 1000 Ml Bag IV 08/05/24 00:44 999 mls/hr .Q1H1M ONE Administration ORDERS Category Date Time Status CBC w/Auto Diff [Complete Blood Count Auto Diff] Stat Lab 08/04/24 23:44 Completed CMP [Comprehensive Metabolic Panel] Stat Lab 08/04/24 23:43 Completed HCG Qualitative, Serum Stat Lab 08/04/24 23:43 Completed Magnesium Stat Lab 08/04/24 23:43 Completed Medical Decision Narrative: In summary, this 18-year-old female with history of migraines, abnormal uterine bleeding, which may not be at goal therapy presents to the emergency department today with migraine. On initial evaluation patient is hemodynamically stable, afebrile, GCS 15, no neurologic deficits. Differential diagnosis includes but is not limited to headache, tension headache, migraine, electrolyte abnormality, dehydration, , among others. Based on these concerns, I ordered serum labs. I considered intracranial imaging but patient just had a brain MRI on 07/21/2024 and I do not believe it is indicated at this time since MRI was reassuring and patient has no red flag symptoms for intracranial bleed. I discussed options for treatment with patient and mom at bedside. Patient took most of the components of a normal migraine cocktail at home and since this is been unsuccessful I recommended droperidol. They are agreeable to this understanding potential side effects. EKG was performed for this purpose. I personally interpreted EKG which demonstrates sinus rhythm, rate 80, normal axis, normal NJ and QTc, no STEMI. Normal ECG IV in patient's wrist was not functional and causing pain. It was removed. Patient required ultrasound guided IV. I placed this in the right upper extremity. See procedure note for details. Patient tolerated procedure well Labs personally reviewed demonstrate test negative, nonactionable CMP, slightly elevated anion gap could be related to mild dehydration, CBC normal. Patient is receiving IV fluids, droperidol. Magnesium normal at 2.0. Patient was placed into ED observation at 0036 for 2-hour observation according to hospital protocol after droperidol administration. 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 Patient was frequently reassessed and has had dramatic improvement of symptoms. She is resting much more comfortably at this time and states her headache is significantly improved. She would like to go home and from my standpoint is appropriate for discharge. Patient was given instructions on symptomatic management, follow up instructions, and return precautions for the emergency department. Patient indicated understanding and was discharged in stable condition. Total time in ED observation: 2 hours I had [id number] visit with the patient and family when providing discharge instructions. Total time involved in discharging this patient was less than 30 minutes. Procedures Miscellaneous Procedure Procedure Performed: Ultrasound-guided IV Indications: Multiple failed nursing attempts, need for peripheral IV access Risk benefits discussed with patient and mom at bedside. Verbal consent provided. Skin was cleansed with chlorhexidine which was allowed to dry. Sterile lubrication used for ultrasound probe. Appropriate compressible blood vessel was identified in the proximal right upper extremity. 18-gauge IV placed into this vessel on first attempt. IV draws and flushes. Secured with Tegaderm. Post procedure: Neurovascularly intact, no changes. Patient tolerated procedure well. Critical Care Critical Care Time Critical Care Time: No
[2024-08-05 01:30] VITALS: BP 142/89; PULSE 101; O2SAT 97
[2024-08-05 02:39] VITALS: BP 133/81; PULSE 90; RESP 16; TEMP 37.2; O2SAT 99
--- NOTE | 2024-08-05 02:42 | PC.NURSE ---
IV removed. Catheter tip intact. Bleeding controlled.
== END 2024-08-05 02:42 | disposition home or self-care (01) ==
PROVIDERS: Emergency Provider Emergency Medicine; PCP Nurse Practitioner Family
DX: R51.9 Headache, unspecified (principal); R11.0 Nausea; H53.149 Visual discomfort, unspecified; N93.9 Abnormal uterine and vaginal bleeding, unspecified; F41.9 Anxiety disorder, unspecified
CPT/HCPCS: 80053; 83735; 84703; 85025; 93005; 96361; 96374; 99283; J1790; J7120

== ENCOUNTER 2024-09-26 14:14 | Outpatient (CLI) | payer OTHER, SELFPAY ==
[2024-09-26 15:09] LABS: Basophils % 0.4 % (0.1-2.0); Eosinophils # 0.1 Kmm3 (0.0-0.4); Eosinophils % 1.4 % (0.1-12.0); Hematocrit 39.6 % (37.0-47.0); Hemoglobin 12.9 g/dL (12.2-16.2); Immature Granulocytes # 0.04 10^3uL; Immature Granulocytes % 0.4 %; Lymphocytes # 3.4 K/mm3 (0.7-4.5); Lymphocytes % 38.1 % (10-50); Mean Corpuscular HGB Conc 32.6 g/dL (31.8-35.4); Mean Corpuscular Hemoglobin 28.2 pg (27.0-31.2); Mean Corpuscular Volume 86.5 fl (81-99); Mean Platelet Volume 9.3 fl (7.4-10.4); Monocytes # 0.7 K/mm3 (0.1-1.0); Neutrophils # 4.7 K/mm3 (1.8-7.8); Neutrophils % 51.7 % (37.0-80.0); Nucleated Red Blood Cells # 0 10^3/uL; Nucleated Red Blood Cells % 0 %; Platelet Count 372 K/mm3 (142-424); Red Blood Count 4.58 M/mm3 (4.20-5.40); Red Cell Distribution Width 12.9 % (11.5-17.5); Red Cell Distribution Width-SD 40.2 fL
[2024-09-26 15:22] LABS: Activated Partial Thrombo Time 30.7 seconds (22.8-30.6); INR 0.97 (0.9-1.1); Prothrombin Time 10.8 seconds (10.1-12.5)
[2024-09-26 15:57] LABS: Alanine Aminotransferase 21 U/L (12-78); Albumin Level 4.5 g/dl (3.5-5.0); Albumin/Globulin Ratio 2.1 (1.1-1.8); Alkaline Phosphatase 78 U/L (38-126); Aspartate Amino Transferase 25 U/L (14-36); Bilirubin,Total 0.4 mg/dl (0.2-1.3); Blood Urea Nitrogen 8 mg/dl (7-17); Calcium 9.2 mg/dl (8.4-10.2); Carbon Dioxide 25 mmol/L (22.0-30.0); Chloride 106 mmol/L (98-107); Estimated Glomerular Filt Rate 127 ml/min (>60); GFR (African American) 154 ML/MIN (>60); Globulin 2.1 g/dL (1.3-3.2); Glucose 88 mg/dl (74-100); Sodium 140 mmol/L (136-145); Total Protein,Serum 6.6 g/dl (6.3-8.2)
[2024-09-26 16:08] LABS: Anion Gap 13.2 mEq/L (5-15); Potassium 4.2 mmoL/L (3.5-5.1)
[2024-09-28 00:09] LABS: von Willebrand Factor (vWF) Ag 76 % (50-200)
== END 2024-09-26 23:59 | disposition home or self-care (01) ==
LOC: LAB 14:15
PROVIDERS: PCP Nurse Practitioner Family; Visit Provider Nurse Practitioner Obstetrics & Gynecology
DX: N93.9 Abnormal uterine and vaginal bleeding, unspecified (principal)
CPT/HCPCS: 36415; 80053; 85025; 85245; 85610; 85730

== ENCOUNTER 2024-09-27 11:48 | Outpatient (CLI) | payer OTHER, SELFPAY ==
[2024-09-27 12:13] VITALS: BMI 30.5
[2024-09-27 12:38] LABS: Urine Pregnancy, HCG Qual. Negative (Negative)
== END 2024-09-27 23:59 | disposition home or self-care (01) ==
LOC: PREOP 11:49
PROVIDERS: PCP Nurse Practitioner Family; Visit Provider Nurse Practitioner Obstetrics & Gynecology
DX: Z01.812 Encounter for preprocedural laboratory examination (principal)
CPT/HCPCS: 81025

== ENCOUNTER 2024-09-28 11:41 | Day surgery (SDC) | payer OTHER, SELFPAY ==
[2024-09-27 12:06] VITALS: BMI 30.5
[2024-09-28] VITALS (9 sets, daily range): BP systolic 96–121; BP diastolic 61–77; PULSE 70–97; RESP 14–18; TEMP 36.2–36.3; O2SAT 93–100
[2024-09-28] MEDS: LACTATED RINGERS 1000ML 1,000 ML 25 ML IV (11:59)
--- NOTE | 2024-09-28 12:15 | EXP.ANES.CKL ---
[facility] Disclaimer: The information contained in this section may have been updated after the patient was seen, as this information can be updated by other users. Medical History Endometriosis clinically Pelvic pain Abnormal uterine bleeding Difficulty swallowing Choking episode Acute dysfunction of both eustachian tubes TMJ (dislocation of temporomandibular joint) Acute anemia Lumbosacral strain Cervical muscle strain Bronchitis Pharyngitis Depression Anxiety Migraine Epistaxis Left otitis media Gastroenteritis Surgical History H/O dilation and curettage History of tonsillectomy Family History Sister Postural orthostatic tachycardia syndrome [POTS] Other Cervical cancer Colon cancer Family history of cancer Lung cancer Social History Smoking Status: Never smoker alcohol intake: never substance use type: denies use current occupational status: employed Travel in the last 8 weeks?: None household members: family housing: house lives independently: No education level: high school service: No group home: No caffeine: Yes special maryam needs: No do you feel safe at home: Yes victim of physical abuse: No victim of emotional abuse: No victim of sexual abuse: No would you like helpful sources: No Have you lived/traveled outside US in past 30 days?: No Contact w/someone who lives/traveled outside US past 30 days?: No Exposure to someone with infectious disease in past 14 days?: No Do you have a fever (greater than 100.4 F or 38 C)?: No Have you tested positive for COVID-19?: No Exposed to someone with COVID-19 in past 14 days?: No Do you have a sore throat?: No Do you have a cough?: No Do you have any weakness?: No Do you have any diarrhea?: No Are you experiencing any unusual bleeding?: No Do you have any muscle aches/pain?: No Do you have any abdominal pain?: No Are you experiencing loss of taste or smell?: No [facility] Anesthesia Checklist Patient Identification Patient Identification: Arm Band and Verbal (Name & ) Structural Data Admitted From: Home Planned Operative Procedure/s: Hysteroscopy, D&C, possible myosure placement Consent for Planned Operative Procedure(s) Verified: Yes Verified Documents: Surgical Consent NPO Status Verified Time NPO: 00:00 Chart Verification Results Verified: CBC and BMP Additional verifications Patient : No Anesthesia Reactions: No Hx Blood Transfusions: No Blood Transfusion Reaction: No Airway Assessment Mallampati Score:: Class I C-Spine Mobility Assessed: Yes TMJ Mobility Assessed: Yes Dentition: Good Dentition Neurological Assessment Level of Consciousness: Awake, Alert and Appropriate Hx Seizures: No Numbness or tingling in extremities: No Anesthesia Plan Anesthesia Risk discussed: Yes Anesthesia Plan: Verified ASA Class: II Anesthesia Type: General
[2024-09-28] MEDS: CEFAZOLIN SODIUM 2 GM in 0.9 % SODIUM CHLORIDE 100 ML IV (12:40)
[2024-09-28] MEDS: ROPIVACAINE 0.5% 30ML VIAL 150 MG (12:42)
--- NOTE | 2024-09-28 13:10 | EXP.ANES.I ---
[facility] Anesthesia Record Part I Anesthesia Record I Intake, IV Amount: 600 Hydration: Adequate Estimated blood loss (mL): 50 Urine output (mL): 0 Blood Products used (#): none Blood Pressure: 96/68 SaO2: 93 Pulse Rate: 85 Airway Patency: Patent Respiratory Rate: 14 Temperature: 97.1 F Patient is:: Nasal O2, Oral/Nasal airway and Somnolent Stable to PACU at:: 13:03
--- NOTE | 2024-09-28 13:15 | EXP.OP.NOTE ---
Date of procedure: 09/28/24 Pre-op Diagnosis:: Persistent vaginal bleeding. Post-op Diagnosis:: Persistent vaginal bleeding. Possible endometritis Procedure performed:: Hysteroscopy with MyoSure endometrial sampling Surgeon:: Farrukh Camara MD [place] GUIDE:: Other (Neftali Ruiz) Anesthesia: LMA Estimated blood loss (mL): 50 Clinical Note:: She is a 18-year-old 0 para 0 young lady who has persistent vaginal bleeding. She has tried various forms of control pills, Depo-Provera, and IUD and most recently an estradiol patch. Her estradiol is low, less than 5 and her FSH and LH are low as well. 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 It seems that she continues to have daily bleeding and most recently has bled for about 18 days. She had a D&C about 2 years ago and at that time there were polyps on the pathology. As result of this and the persistent bleeding we elected to perform a hysteroscopy with endometrial sampling. Operative findings:: She had an anteverted small uterus. The endometrium appeared lush but inflamed. There were punctate inflammatory areas throughout the entire endometrium. Tubal ostia were seen and appeared normal. The size of the endometrial cavity appeared well. Operative note:: She was taken operating room where LMA anesthesia was found to be adequate. She was prepped draped normal sterile fashion lithotomy position. A weighted speculum placed in vagina and the anterior lip of the cervix with a tenaculum. Then using Kelley dilators I dilated the cervix to approximately 6 mm. I then inserted a 6 mm hysteroscope and the findings were as previously dictated. Then using the MyoSure device I was able to sample most of the endometrial cavity. At the end of the procedure I injected 30 cc of 0.25% ropivacaine at the 3:00, 5:00, 7:00, and 9:00 positions of the cervix. She tolerated procedure well and was taken recovery room in excellent condition. All sponge, instrument counts were correct. The estimated blood loss was less than 50 cc. Condition: stable Disposition: PACU Specimens:: End of she also ambulate Complications:: None
[2024-09-28] MEDS: HYDROMORPHONE 2MG/ML SYRINGE 0.5 MG IV ×3 (13:20→13:30)
--- NOTE | 2024-09-29 08:16 | EXP.ANES.II ---
[facility] Anesthesia Record Part II Anesthesia Record Part II Discharge Time: 13:33 Destination: [facility] PACU nurse assessment reviewed?: Yes Patient Condition:: Good Anesthesia Complications:: None Swallowing reflex intact?: Yes Airway Patency: Patent Cyanosis?: No Blood Pressure: 111/73 SaO2: 92 Respiratory Rate: 14 Pulse Rate: 91 Temperature: 97.1 F Mental Status: Alert & Oriented Pain level:: 3 Nausea and/or vomitting:: None Intake, IV Amount: 1,500 Hydration: Adequate
[2024-09-29 08:17] VITALS: BP 111/73; PULSE 91; RESP 14; TEMP 36.2; O2SAT 92
== END 2024-09-28 14:05 | disposition home or self-care (01) ==
PROVIDERS: PCP Nurse Practitioner Family; Visit Provider Nurse Practitioner Obstetrics & Gynecology
PROC: 0UDB8ZZ Extraction of Endometrium, Via Natural or Artificial Opening Endoscopic (ICD-10-PCS; CPT 58558; principal; 2024-09-28 13:15)
DX: N93.9 Abnormal uterine and vaginal bleeding, unspecified (principal)
CPT/HCPCS: 58558; 96374; J0690; J1100; J1171; J2250; J2405; J3010; J7120

== ENCOUNTER 2024-10-11 15:26 | Outpatient (CLI) | payer OTHER, SELFPAY | END 2024-10-11 23:59 | disposition home or self-care (01) | LOC: LAB.DROPOF 10-12 09:54 | PROVIDERS: PCP Nurse Practitioner; Visit Provider Nurse Practitioner | DX: R35.0 Frequency of micturition (principal) | CPT/HCPCS: 87086 ==

== ENCOUNTER 2024-11-25 12:41 | Outpatient (CLI) | payer OTHER, SELFPAY ==
--- OUTSIDE RECORDS SUMMARY | 2024-01-05 11:00 | XMS_ITS ---
Author Organization [facility] Address [address] [place] [address] Care Team Providers Care Housing Project Manager Name Role Phone Akiko CRUMP, Cristi Unavailable Unavailable ISAIAS, ANDREI Unavailable [phone] REASON FOR VISIT PELVIC VENOGRAM Encounters Encounter Location Date Provider Diagnosis [facility] [address] [place] [address] 01/05/2024 ANDREI JARRETT Plan Of Treatment No Information Progress Notes * SPENCER GODFREYHALIMAOB:2005 ( 19 yo F)Acc No.[id number]:01/05/2024 Patient: FAUSTO KENDRICK Provider: Niesha Jarrett DO :2005 A ge:18 Y S ex:Female Date:01/05/2024 Phone: Address:[address] [place], [place] [id number] * Billing Information: * Visit Code: * Procedure Codes: * Electronic signature of ANDREI JARRETT D.O. on 11/28/2024 at 08:39 AM MDT Sign off status: Pending * Provider: Niesha Jarrett DO Date: 01/05/2024 Generated for Alejandro rogel/Epifanio/eTransmitting on: 0 11/28/2024 08:39 AM MDT
[2024-11-25 14:52] LABS: Coronavirus 19, PCR Not Detected (NotDetected); Influenza A, PCR Not Detected (NotDetected); Influenza B, PCR Not Detected (NotDetected)
--- OUTSIDE RECORDS SUMMARY | 2024-11-28 10:39 | XMS_ITS | Clinical Summary ---
Author Organization [facility] Address [address] [place] [id number] Care Team Providers Care Associate Store Director Name Role Phone System, Provider Not In Primary Care Provider Un available Source Comments This information has been disclosed to you from confidential records protectedfrom disclosure by state law. You shall make no further disclosure of thisinformation without the specific, written, and informed release of theindividual to whom it pertains, or as otherwise permitted by law. A generalauthorization for the release of medical or other information is not sufficientfor the purposes of therelease of HIV test results or diagnoses. [id number] Health Allergies No known active allergies Medications escitalopram oxalate (LEXAPRO) 10 MG tablet Take 1 tablet (10 mg total) by mouth daily. Active galcanezumab-gnlm (EMGALITY SYRINGE) 120 mg/mL Syrg Inject 1 mL (120 mg total) subcutaneously every 28 days. Active rizatriptan (MAXALT-LINE ASSEMBLER AIRCRAFT) 10 MG disintegrating tablet Take 1 tablet (10 mg total) by mouth if needed for Migraine. May repeat in 2 hours if needed Active norgestimate-ethin yl estradioL (MONO-LINYAH) 0.25-35 mg-mcg per tablet Take 1 tablet by mouth daily. 3 packet 3 06/09/19 25 Active naproxen (NAPROSYN) 250 MG tablet Take 1 tablet (250 mg total) by mouth 2 times a day with meals. 60 tablet 1 06/09/19 25 Active Family History Medical History Relation Comments Endometriosis Mother Hypothyroidism Mother Infertility Mother Familial dysautonomia Sister 1 postural orthostatic tachycardial syndrome Siste r 1 Relation Status Comments Father Alive Mother Alive Sister 1 Alive Sister 2 Alive Social History Tobacco Use Types Packs/Day Years Used Date Smoking Tobacco: Never Smokeless Tobacco: Never Tobacco Cessation:Counseling Given: Not Answered Alcohol Use Standard Drinks/Week Comments Never 0 (1 standard drink = 0.6 oz pur e alcohol) Comments Unknown Sex and Gender Information Value Date Recorded Sex Assigned at Not on file Legal Sex Female 11:15 AM EDT Gender Identity Not on file Sexual Orientation Not on file Last Filed Vital Signs Vital Sign Reading Time Taken Comments Blood Pressure 110/78 06/09/2024 11:23 AM EST Pulse 102 06/09/2024 11:23 AM EST Temperature 36.6 C (97.8 F) 03/10/2024 10:00 AM EDT Respiratory Rate - - Oxygen Saturation 98% 06/09/2024 11:23 AM EST Inhaled Oxygen Concentration 98% 06/09/2024 1 1:23 AM EST Weight 90.7 kg (200 lb) 06/09/2024 11:23 AM EST Height 172.7 cm (5' 8 ) 06/09/2024 11:23 AM EST Body Mass Index 30.41 06/09/2024 11:23 AM EST Plan of Treatment Health Maintenance Due Date Last Done Comments Diabetes Screening 2003 Hepatitis C Screening (MyChart) 2003 Pediatric Hearing Test 11/07/2014 Depression Screening 11/07/2021 HIV Screening 11/07/2021 Immunization: COVID-19 ( season) 2024 09/07/2021, 08/20/2020, 07/30/2020 Cervical Cancer Screening/Pa p Smear (MyChart) 11/07/2024 Immunization: Influenza (MyC [place]) (#1) 2025 01/23/2024, 02/21/2023 Immunization: DTaP/Tdap/Td ( 7 - Td or Tdap) 10/22/2025 10/23/2015, 12/24/2007, 05/16/2005, Additional history exists Immunization: Hepatitis B Completed 2004, 08/06/2004, 05/16/2004 Immunization: Pneumococcal Completed 11/13, 02/11/2005, 08/14/2004, Additional history exists Immunization: HPV Completed 07/16/2020, 10/23/2015 Immunization: Meningococcal ACWY Completed 07/17/19, 10/23/2015 Insurance [facility] Care Teams Associate Store Director Relationship Specialty Start Date End Date System, Provider Not In PCP - General 03/02/24
--- OUTSIDE RECORDS SUMMARY | 2024-11-28 10:39 | XMS_ITS | Clinical Summary ---
Author Organization Healthcare Address [address] [place] [address] Care Team Providers Care Process Checker Name Role Phone Pcp, No Primary Care Provider Unavailabl e Allergies No known active allergies Medications escitalopram (Lexapro) 10 MG tablet Take 1 tablet by mouth 1 (one) time each day. Active galcanezumab-gnlm (Emgality) 120 MG/ML injection Inject 1 Syringe under the skin every 28 (twenty-eigh t) days. Active naproxen (Naprosyn) 250 MG tablet Take 1 tablet by mouth in the morning and 1 tablet in the evening. Active rizatriptan BLEACHING SUPERVISOR (Maxalt-BLEACHING SUPERVISOR) 10 MG disintegrating tablet Dissolve 1 tablet on the tongue daily as needed. Active busPIRone (Buspar) 5 MG tablet Take by mouth in the morning and before bedtime. Active Active Problems No known active problems Social History Tobacco Use Types Packs/Day Years Used Date Smoking Tobacco: Never Smokeless Tobacco: Never Tobacco Cessation:Counseling Given: Not Answered Alcohol Use Standard Drinks/Week Comments Not Currently 0 (1 standard drink = 0.6 oz pur e alcohol) PHQ-2 Answer Date Recorded Patient Health Questionnaire-2 Score 0 08/11/2024 Comments Unknown Sex and Gender Information Value Date Recorded Sex Assigned at Not on file Legal Sex Female 8:29 PM EDT Gender Identity Not on file Sexual Orientation Not on file Last Filed Vital Signs Vital Sign Reading Time Taken Comments Blood Pressure 102/70 08/11/2024 9:29 AM EDT Pulse 88 08/11/2024 9:29 AM EDT Temperature - - Respiratory Rate - - Oxygen Saturation - - Inhaled Oxygen Concentration - - Weight 91.6 kg (201 lb 15.1 oz) 08/11/2024 9:29 AM EDT Height 170.2 cm (5' 7 ) 08/11/2024 9:29 AM EDT Body Mass Index 31.63 08/11/2024 9:29 AM EDT Plan of Treatment Health Maintenance Due Date Last Done Comments [facility]-HIV Screening 2003 [facility]-Hepatitis C Screening 2003 [facility]-Infant/Child/Adol SDOH Screenings 2003 [facility]- SDOH Screenings 11/07/2021 [facility]-Adult SDOH Screenings 11/07/2021 [id number] Vaccine ( season) 2024 09/07/2021, 08/20/2020, 07/30/2020 [facility]-Pap Smear 11/07/2024 [facility]-Influenza Vaccine (#1) 2025 01/23/2024, [facility]-Depression Screening 08/11/2025 08/11/2024 [facility]-DTaP,Tdap,and Td Vaccines (7 - Td or Tdap) 10/22/2025 10/23/2015, 12/24/2007, 05/16/2005, Additional history exists [facility]-Zoster Vaccines (1 of 2) 11/07/2053 10/23/2015, 03/13/2009 [facility]-Hepatitis B Vaccines Completed 005, 08/06/2004, 05/16/2004 [facility]-HIB Vaccines Completed 02/11/2005, 10/2004, 03/08/2004, Additional history exists [facility]-Pneumococcal Vaccine: Pediatrics (0 to 5 Years) and At-Risk Patients (6 to 49 Years) Completed 11/13/2005, 02/11/2005, 08/14/2004, Additional history exists [facility]-Hepatitis A Vaccines Completed 11/24/2006, 07/2005 [facility]-IPV Vaccines Completed 12/24/2007, 10/2005, 03/08/2004, Additional history exists [facility]-Varicella Vaccines Completed 10/23/2015, 2008 HPV Vaccines Completed 07/16/2020, 10/23/2015 [facility]-Obesity Intervention Completed 08/11/2024 [facility]-Rotavirus Vaccines Aged Out No lo nger eligible based on patient's age to complete this topic Insurance Care Teams Process Checker Relationship Specialty Start Date End Date Pcp, [place] [address] PCP - General Family Medicine 08/08/24
--- OUTSIDE RECORDS SUMMARY | 2024-11-28 10:39 | XMS_ITS | Patient Health Record ---
Author Organization [facility] Address [address] [place] [address] Care Team Providers Care Icu Nurse Name Role Phone Cristi Wharton MD Unavailable Unavailable ISAIAS, ANDREI Unavailable [phone] Reason For Referral No Information Encounters Encounter Location Date Provider Diagnosis [facility] [address] [place] [address] 01/05/2024 ANDREI ISAIAS Plan Of Treatment No Information
--- OUTSIDE RECORDS SUMMARY | 2024-11-28 10:39 | XMS_ITS | Encounter Summary ---
Author Organization Healthcare Address [address] [place] [id number] Care Team Providers Care Ophthalmic Dispenser Name Role Phone Pcp, No Primary Care Provider Unavailabl e Encounter Details Date Type Department Care Team (Late st Contact Info) Description 08/23/2024 Results Follow-Up [facility] Endocrinology [address] [place] [address] Moises Harris [address] [place] [address] Social History Tobacco Use Types Packs/Day Years Used Date Smoking Tobacco: Never Smokeless Tobacco: Never Alcohol Use Standard Drinks/Week Comments Not Currently 0 (1 standard drink = 0.6 oz pur e alcohol) PHQ-2 Answer Date Recorded Patient Health Questionnaire-2 Score 0 08/11/2024 Comments Unknown Sex and Gender Information Value Date Recorded Sex Assigned at Not on file Legal Sex Female 8:29 PM EDT Gender Identity Not on file Sexual Orientation Not on file documented as of this encounter Plan of Treatment Scheduled Orders Name Type Priority Associated Diagnoses Orde r Schedule Estradiol Lab Routine Low serum estradiol Expected: 09/22/2024 (Approximate), Expires: 08/23/2025 documented as of this encounter Visit Diagnoses Diagnosis Low serum estradiol- Primary documented in this encounter Additional Health Concerns Assessment Noted Time A Body Mass Index follow-up plan has been documented for the patient 08/15/2024 1:55 PM EDT documented as of this encounter Care Teams Ophthalmic Dispenser Relationship Specialty Start Date End Date Pcp, Cornelia [address] [place] [id number] PCP - General Family Medicine 08/08/24 documented as of this encounter
== END 2024-11-25 23:59 | disposition home or self-care (01) ==
LOC: LAB.DROPOF 11-28 10:33
PROVIDERS: PCP Nurse Practitioner; Visit Provider Nurse Practitioner
DX: R05.9 Cough, unspecified (principal); J02.9 Acute pharyngitis, unspecified
CPT/HCPCS: 87631

== ENCOUNTER 2025-02-04 08:16 | Outpatient (CLI) | payer OTHER, SELFPAY ==
--- OUTSIDE RECORDS SUMMARY | 2024-01-05 11:00 | XMS_ITS ---
Author Organization [facility] Address [address] [place] [address] Care Team Providers Care Psychologist Chief Name Role Phone Akiko CRUMP, Cristi Unavailable Unavailable ISAIAS, ANDREI Unavailable [phone] REASON FOR VISIT PELVIC VENOGRAM Encounters Encounter Location Date Provider Diagnosis [facility] [address] [place] [address] 01/05/2024 ANDREI JARRETT Plan Of Treatment No Information Progress Notes * SPENCER GODFREYHALIMAOB:2005 ( 19 yo F)Acc No.[id number]:01/05/2024 Patient: FAUSTO KENDRICK Provider: Niesha Jarrett DO :2005 A ge:18 Y S ex:Female Date:01/05/2024 Phone: Address:[address] [place], [place] [phone] * Billing Information: * Visit Code: * Procedure Codes: * Electronic signature of ANDREI JARRETT D.O. on 02/04/2025 at 06:20 AM MDT Sign off status: Pending * Provider: Niesha Jarrett DO Date: 0 01/05/2024 Generated for Alejandro rogel/Epifanio/eTransmitting on: 0 02/04/2025 06:20 AM MDT
--- OUTSIDE RECORDS SUMMARY | 2025-02-04 08:20 | XMS_ITS | Patient Health Record ---
Author Organization [facility] Address [address] [place] [address] Care Team Providers Care Crime Scene Examiner Name Role Phone Cristi Wharton MD Unavailable Unavailable Reason For Referral No Information Plan Of Treatment No Information
--- OUTSIDE RECORDS SUMMARY | 2025-02-04 08:20 | XMS_ITS | Clinical Summary ---
Author Organization Healthcare Address [address] [place] [address] Care Team Providers Care Retail Performance Specialist Name Role Phone Pcp, No Primary Care [...] 1 tablet in the evening. Active rizatriptan FIXED INCOME PORTFOLIO MANAGER (Maxalt-FIXED INCOME PORTFOLIO MANAGER) 10 MG disintegrating tablet Dissolve 1 tablet [...] [facility]-HIV Screening 2003 [facility]-Hepatitis C Screening 2003 [facility]-/Child/Adol SDOH Screenings 2003 [facility]- SDOH Screenings 11/07/2021 [facility]-Adult SDOH Screenings 11/07/2021 [facility]-Pap Smear 11/07/2024 [id number] Vaccine ( season) 2025 09/07/2021, 08/20/2020, 07/30/2020 [facility]-Influenza Vaccine (#1) 2025 01/23/2024, [facility]-Depression Screening [...] to complete this topic Insurance Care Teams Retail Performance Specialist Relationship Specialty Start Date End Date Pcp, [place] [address] PCP - General Family Medicine 08/08/24
[2025-02-06 12:07] LABS: FSH 8.2 mIU/mL (.); LH 4.7 mIU/mL (.); Testosterone,Total 29 ng/dL (13-71)
== END 2025-02-04 23:59 | disposition home or self-care (01) ==
LOC: LAB 08:18
PROVIDERS: PCP Nurse Practitioner Family; Visit Provider Obstetrics & Gynecology
DX: N93.9 Abnormal uterine and vaginal bleeding, unspecified (principal); R23.2 Flushing
CPT/HCPCS: 82670; 83001; 83002; 84144; 84403

== ENCOUNTER 2025-04-29 08:59 | Outpatient (CLI) | payer OTHER, SELFPAY ==
--- NOTE | 2025-04-29 09:00 | XR_ITS ---
PROCEDURE INFORMATION: Exam: XR Chest Exam date and time: 04/29/2025 9:12 AM Age: 19 years old Clinical indication: Cough; Additional info: Cough/congestion TECHNIQUE: Imaging protocol: Radiologic exam of the chest. Views: 2 views. COMPARISON: CR XR CHEST 2V 07/21/2022 12:05 PM FINDINGS: Lungs: Unremarkable. No consolidation. Pleural spaces: Unremarkable. No pleural effusion. No pneumothorax. Heart/Mediastinum: Unremarkable. No cardiomegaly. Bones/joints: Unremarkable. IMPRESSION: No acute findings.
--- OUTSIDE RECORDS SUMMARY | 2025-04-29 09:01 | XMS_ITS | Clinical Summary ---
Author Organization [employer] ([place], [place], [place], [place], [place]) Address [address] [place] [address] Care Team Providers Care Climate Change Risk Assessor Name Role Phone Unavailable Primary Care Provider Unavailabl e Allergies No known active allergies Medications busPIRone (BUSPAR) 5 MG tablet Take 1 tablet (5 mg total) by mouth 2 (two) times daily. Active escitalopram (LEXAPRO) 10 MG tablet Take 1 tablet (10 mg total) by mouth. Active galcanezumab-gnlm (Emgality Syringe) 120 mg/mL syringe Inject 1 mL (120 mg total) under the skin every 28 days. Active naproxen (NAPROSYN) 250 MG tablet Take 1 tablet (250 mg total) by mouth 2 (two) times daily. 5 Active norgestimate-ethiny l estradioL (ORTHO-CYCLEN) 0.25-0.035 mg per tablet Take 1 tablet by mouth daily. 5 Active rizatriptan (MAXALT) 10 MG disintegrating tablet Take 1 tablet (10 mg total) by mouth. Active Active Problems No known active problems Encounters Date Type Department Care Team Description 01/30/2025 3:00 PM EDT Office Visit [facility] Orthopedics - [address] [place] [address] Nabila Akhtar MD Capsulitis (Primary Dx); Right wrist pain from Last 3 Months Family History Medical History Relation Name Comments Arthritis Maternal Grandmother Nidia Cancer Maternal Grandmother Nidia Cancer Other Relation Name Status Comments Maternal Grandmother Nidia Alive Other Social History Tobacco Use Types Packs/Day Years Used Date Smoking Tobacco: Never Smokeless Tobacco: Never Alcohol Use Standard Drinks/Week Comments Not Currently 0 (1 standard drink = 0.6 oz pur e alcohol) Comments Unknown Sex and Gender Information Value Date Recorded Sex Assigned at Not on file Legal Sex Female 6:19 PM CDT Gender Identity Not on file Sexual Orientation Not on file Last Filed Vital Signs Vital Sign Reading Time Taken Comments Blood Pressure 126/83 01/30/2025 3:19 PM EDT Pulse 91 01/30/2025 3:19 PM EDT Temperature - - Respiratory Rate - - Oxygen Saturation - - Inhaled Oxygen Concentration - - Weight 81.6 kg (180 lb) 01/30/2025 3:19 PM EDT Height 170.2 cm (5' 7 ) 01/30/2025 3:19 PM EDT Body Mass Index 28.19 01/30/2025 3:19 PM EDT Plan of Treatment Health Maintenance Due Date Last Done Comments Depression Screening (12+) 2015 HIV Screening 11/07/2018 Meningococcal B Vaccine (1 o f 2 - Standard) 2019 Hepatitis C Screening 11/07/2021 Pap Smear 11/07/2024 COVID-19 VACCINE (4 - 2024-2 6 season) 2025 09/07/2021, 08/20/2020, 07/30/2020 Influenza Vaccine (#1) 2025 DTAP/TDAP/TD VACCINES (7 - T d or Tdap) 10/22/2025 10/23/2015, 12/24/2007, 05/16/2005, Additional history exists Tobacco Cessation Counseling and Screening (12+) 01/31/2026 01/31/2025 Pneumococcal Vaccine: 0-49 Years Completed 11/13/2005, 02/11/2005, 08/14/2004, Additional history exists IPV Vaccine Discontinued 12/24/2007, 10/2005, 03/08/2004, Additional history exists Procedures Procedure Name Priority Date/Time Associated Diagnosis Comments [id number] GENERAL FORM Routine 01/31/2025 6:34 AM EDT Capsulitis from Last 3 Months Results * Right wrist volar radial ganglion injection (01/31/2025 6:34 AM EDT) Nabila Braden MD - 01/31/2025 6:34 AM EDT Nabila Akhtar MD 01/31/2025 6:37 AM Right wrist volar radial ganglion injection Date/Time: 01/31/2025 6:34 AM Performed by: Nabila Akhtar MD Authorized by: Nabila Akhtar MD Consent: Consent obtained: Verbal and written Consent given by: Patient Risks, benefits, and alternatives were discussed: yes Risks discussed: Bleeding, infection, pain, incomplete drainage, nerve damage and poor cosmetic result [place] protocol: Procedure explained and questions answered to patient or proxy's satisfaction: yes Relevant documents present and verified: yes Test results available: yes Imaging studies available: yes Site/side marked: yes Immediately prior to procedure, a time out was called: yes Patient identity confirmed: Verbally with patient Pre-procedure details: Preparation: Patient was prepped and draped in the usual sterile fashion Sedation: Sedation type: None Anesthesia: Anesthesia method: Topical application (See MAR) Procedure specific details: Right radio-scaphoid joint ganglion injection The hand was positioned in the prone position with the dorsal wrist pointing dorsally. The radioscaphoid joint was prepped with alcohol swabs. The RSJ was identified in the dorsal wrist crease just distal and medial to the radial styloid. The RSJ was injected with 1ml of 1% lidocaine and Kenalog 10mg. Effects from the injection may take several days to be noticeable. Contact the office in 2 weeks if absolutely no improvement noted. Post-procedure details: Procedure completion: Tolerated well, no immediate complications Nabila Akhtar MD PROCEDURE/MINOR SURGICAL ORDERABLES Final Result from Last 3 Months Insurance [facility]
--- OUTSIDE RECORDS SUMMARY | 2025-04-29 09:01 | XMS_ITS | Referral Summary ---
Author Organization [facility] ([place], [place], [place], [place], [place]) Address [address] [place], [place] [address] Care Team Providers Care Shading Painter Name Role Phone Unavailable Primary Care Provider Unavailabl e Encounters Date Type Department Care Team Description 01/30/2025 3:00 PM EDT Office Visit [facility] Orthopedics - [address] [place] [address] Nabila Akhtar MD Capsulitis (Primary Dx); Right wrist pain from Last 3 Months Allergies No known active allergies Medications busPIRone [...] 01/30/2025 3:19 PM EDT Plan of Treatment Not on file Procedures Procedure Name Priority Date/Time Associated Diagnosis [...] drainage, nerve damage and poor cosmetic result [place] protocol: Procedure explained and questions answered to [...] Final Result from Last 3 Months Insurance [facility] [place] [address] [id number] [place] [address]
--- OUTSIDE RECORDS SUMMARY | 2025-04-29 09:01 | XMS_ITS | Clinical Summary ---
Author Organization Healthcare Address [address] [place] [address] Care Team Providers Care Tile Applicator Name Role Phone Pcp, No Primary Care [...] 1 tablet in the evening. Active rizatriptan ENDING MACHINE OPERATOR (Maxalt-ENDING MACHINE OPERATOR) 10 MG disintegrating tablet Dissolve 1 tablet [...] [facility]-Adult SDOH Screenings 11/07/2021 [facility]-Pap Smear 11/07/2024 [id number] Vaccine ( season) 2025 09/07/2021, 08/20/2020, 07/30/2020 [...] to complete this topic Insurance Care Teams Tile Applicator Relationship Specialty Start Date End Date Pcp, [place] [address] PCP - General Family Medicine 08/08/24
--- OUTSIDE RECORDS SUMMARY | 2025-04-29 09:01 | XMS_ITS | Clinical Summary ---
Author Organization [facility] Address [address] [place] [address] Care Team Providers Care Fixer Boarding Room Name Role Phone System, Provider Not In [...] therelease of HIV test results or diagnoses. [id number] Allergies No known active allergies Medications escitalopram oxalate (LEXAPRO) 10 MG tablet Take 1 tablet (10 mg total) by mouth daily. Active galcanezumab-gnlm (EMGALITY SYRINGE) 120 mg/mL Syrg Inject 1 mL (120 mg total) subcutaneously every 28 days. Active rizatriptan (MAXALT-DIVERSITY SPECIALIST) 10 MG disintegrating tablet Take 1 tablet [...] Screening (MyChart) 2003 Pediatric Hearing Test 11/07/2014 Immunization: Meningococcal B (1 of 2 - Standard) 2019 Depression Screening 11/07/2021 HIV Screening 11/07/2021 Cervical Cancer Screening/Pa p Smear (MyChart) 11/07/2024 Immunization: COVID-19 ( season) 2025 09/07/2021, 08/20/2020, 07/30/2020 Immunization: Influenza (MyC majano) (#1) 2025 01/23/2024, 02/21/2023 Immunization: DTaP/Tdap/Td ( 7 - Td or Tdap) 10/22/2025 10/23/2015, 12/24/2007, 05/16/2005, Additional history exists Immunization: Hepatitis B Completed 2004, 08/06/2004, 05/16/2004 Immunization: Pneumococcal Completed 11/13, 02/11/2005, 08/14/2004, Additional history exists Immunization: HPV Completed 07/16/2020, 10/23/2015 Immunization: Meningococcal ACWY Completed 07/17/19, 10/23/2015 Insurance [facility] Care Teams Fixer Boarding Room Relationship Specialty Start Date End Date System, Provider Not In PCP - General 03/02/24
[2025-04-29 09:06] LABS: Coronavirus 19, PCR Not Detected (NotDetected); Influenza A, PCR Not Detected (NotDetected); Influenza B, PCR Not Detected (NotDetected)
== END 2025-04-29 23:59 | disposition home or self-care (01) ==
PROVIDERS: PCP Nurse Practitioner Family; Visit Provider Nurse Practitioner
DX: J06.9 Acute upper respiratory infection, unspecified (principal); R09.89 Other specified symptoms and signs involving the circulatory and respiratory systems
CPT/HCPCS: 71046; 87631